=== PATIENT | female | born 1940 ===

== ENCOUNTER 2019-02-04 08:32 | Day surgery (SDC) | payer OTHER | END 2019-02-04 12:30 | disposition home or self-care (01) | LOC: OR 08:32 | PROC: 3E0T3BZ Introduction of Anesthetic Agent into Peripheral Nerves and Plexi, Percutaneous Approach (ICD-10-PCS; principal; 2019-02-04) | DX: M53.3 Sacrococcygeal disorders, not elsewhere classified (principal) | CPT/HCPCS: J1020; J2001; J3490; Q9966 ==